=== PATIENT | male | born 1995 | race Asian ===

== ENCOUNTER 2016-05-22 18:36 | Emergency (ER) | payer OTHER ==
[2016-05-22 18:49] VITALS: BP 138/79
--- NOTE | 2016-05-22 18:58 | UC ---
UC General HPI - HPI Summary HPI Summary: The patient comes in today for: 1. Diarrhea, feverish, and rash: Onset: Last night. Palliative/provocative: Dayquil and Nyquil helped the fever. Quality: No pain, but rash is itchy. Region/radiation: Severity: Pelvic area and up to the head. Time: Constant--rash has been present 1-2 hours ago. Associated symptoms: Fever: No temperature taken at home. Rhinitis: None. Cough: Present, and productive of yellow material. Sore throat: Present. Voice change: He states that his voice will "crack" at times. Diarrhea: 3 stools today (green liquid). Vomiting: None. Urination: "normal" and clear to light yellow. Work: He is a student, but the people around him are not ill like him. Traveling: None. * - History of Current Complaint Stated Complaint: RASH, DIARRHEA, AND ABDOMINAL PAIN Time Seen by Provider: 05/22/16 18:44 Hx Obtained From: Patient - Allergy/Home Medications Allergies/Adverse Reactions: Allergies Allergy/AdvReac Type Severity Reaction Status Date / Time No Known Allergies Allergy Verified 05/10/15 13:49 Home Medications: Home Medications Ibuprofen [Advil] 200 mg PO 05/22/16 [History] Phenylephrine-Dm [Daytime Cold & Cough Chil 2.5-5 mg/5Ml] 05/22/16 [History] Hoxlxhzybxzph-[id number] [Nyquil Severe Cold/Flu 5-6.25-10-325 mg/15Ml] 1 liq PO 05/22/16 [History] PMH/Surg Hx/FS Hx/Imm Hx Previously Healthy: Yes Endocrine History Of: Denies: Diabetes, Thyroid Disease, Hyperthyroidism, Hypothyroidism, Dyslipidemia Cardiovascular History Of: Denies: Cardiac Disorders, Hypertension, Pacemaker/ICD, Myocardial Infarction , Congestive Heart Failure, Atrial Fibrillation, Deep Vein Thrombosis, Bleeding Disorders Respiratory History Of: Denies: COPD, Asthma, Bronchitis, Pneumonia, Pulmonary Embolism GI/ History Of: Denies: Gastroesophageal Reflux, Ulcer, Gastrointestinal Bleed, Gall Bladder Disease, Kidney Stones, Diverticulitis, Renal Disease, Urosepsis Neurological History Of: Denies: TIA, CVA, Dementia, Seizures, Migraine Psychological History Of: Denies: Anxiety, Depression, Bipolar Disorder, Schizophrenia, Post Traumatic Stress Disorder Cancer History Of: Denies: Lung Cancer, Colorectal Cancer, Breast Cancer, Prostate Cancer, Cervical Cancer Other History Of: Negative For: HIV, Hepatitis B, Hepatitis C, Anticoagulant Therapy - Surgical History Surgical History: None - Family History Known Family History: Positive: Hypertension Negative: Cardiac Disease - Social History Occupation: Student Alcohol Use: Weekly Substance Use Type: Marijuana Substance Use Comment - Amount & Last Used: once a month Smoking Status (MU): Current Some Day Smoker Type: Cigarettes Review of Systems Constitutional: Negative Skin: Rash Eyes: Negative ENT: Negative Respiratory: Cough Cardiovascular: Negative Gastrointestinal: Diarrhea Genitourinary: Negative Motor: Negative Musculoskeletal: Negative All Other Systems Reviewed And Are Negative: Yes Physical Exam Triage Information Reviewed: Yes Appearance: Well-Appearing, No Pain Distress, Well-Nourished Vital Signs: Initial Vital Signs Temp 100.0 F 05/22/16 18:45 Pulse 66 05/22/16 18:45 Resp 18 05/22/16 18:45 BP 138/79 05/22/16 18:45 Pulse Ox 97 05/22/16 18:45 Vital Signs Reviewed: Yes Eyes: Positive: Conjunctiva Clear. Negative: Discharge ENT: Positive: Hearing grossly normal. Negative: Pharyngeal erythema, Nasal congestion, Nasal drainage, TM bulging, TM dull, TM red, Tonsillar swelling, Tonsillar exudate Dental: Negative: Gross Decay/Caries @, Dental Fracture @ Neck: Positive: Supple, Nontender, No Lymphadenopathy. Negative: Nuchal Rigidity Respiratory: Positive: Chest non-tender, Lungs clear, No respiratory distress, No accessory muscle use. Negative: Crackles, Wheezing Cardiovascular: Positive: RRR, No Murmur Abdomen Description: Positive: Nontender, No Organomegaly, Soft. Negative: Distended, Guarding Musculoskeletal: Positive: Strength Intact, ROM Intact, No Edema Neurological: Positive: Alert, Muscle Tone Normal Psychological: Positive: Age Appropriate Behavior, Consolable Skin: Positive: rashes - He has a blanching, erythematous, hive/angioedema-like rash--slightly raised. He is not scratching., Other - No dermatographism. Course/Dx - Differential Dx - Multi-Symptom Provider Diagnoses: Viral syndrome. Angioedema secondary to viral infection. Viral gastroenteritis Discharge - Discharge Plan Condition: Stable Disposition: HOME Patient Education Materials: Urticaria (ED), Viral Syndrome (ED), Gastroenteritis (ED) Forms: *School Release Referrals: CARI Pacheco [Primary Care Provider] -
== END 2016-05-22 19:32 | disposition home or self-care (01) ==
LOC: UCEAST 18:36
DX: B34.9 Viral infection, unspecified (principal); T78.3XXA Angioneurotic edema, initial encounter; A08.4 Viral intestinal infection, unspecified; F12.90 Cannabis use, unspecified, uncomplicated; Z72.0 Tobacco use
CPT/HCPCS: 99212; G0463